=== PATIENT | female | born 1930 | race Caucasian/White ===

== ENCOUNTER 2017-11-07 08:42 | Emergency (ER) | payer MEDICAID, MEDICARE ==
--- NOTE | 2017-11-07 10:39 | RAD ---
Indication: Soft tissue swelling medially. 3 views of left ankle demonstrates osteopenia. No definite fractures identified although soft tissue swelling is noted. Inferior calcaneal spurring is noted. Inferior calcaneal spur is noted. IMPRESSION: Soft tissue swelling. No definite fracture is identified.
--- NOTE | 2017-11-07 10:47 | RAD ---
Indication: Fall, left hip pain. 2 views of left hip and an AP view the pelvis demonstrates moderate degenerative changes of the left hip with joint space narrowing. No definite fracture is identified. Pelvic ring is otherwise intact. IMPRESSION: Moderate degenerative changes of the left hip. No definite fracture is noted.
[2017-11-07 11:37] VITALS: BP 144/52
--- NOTE | 2017-11-08 09:55 | ED ---
Uli Cerrato Angela, scribed for Giovany Land MD on 11/07/17 at 0859 . Adult Trauma - HPI Summary HPI Summary: This pt is a 87 y/o female presenting to [facility] via EMS from [facility] c/o left ankle pain s/p fall yesterday. Pt notes she had a fall yesterday and had immediate left ankle pain. No LOC or head strike. She initially states that she doesn't have any pain today, but upon palpation pt notes pain. Per ED nurse, pt had an XR yesterday that has yet to be read. - History of Current Complaint Chief Complaint: EDExtremityLower Stated Complaint: FALL Time Seen by Provider: 11/07/17 08:50 Hx Obtained From: Patient Mechanism of Injury: Fall Loss of Consciousness: no loss of consciousness Onset/Duration: Started Days Ago - 1, Traumatic, Still Present Onset of Pain: Immediate Current Severity: Moderate Pain Intensity: 0 Location: Other - left ankle Aggravating Factor(s): Movement, Palpation Alleviating Factor(s): Nothing Associated Signs & Symptoms: Positive: Negative - Additional Pertinent History Primary Care Physician: [id number] - Allergy/Home Medications Allergies/Adverse Reactions: Allergies Allergy/AdvReac Type Severity Reaction Status Date / Time No Known Drug Allergy Allergy Unknown Verified 12/23/15 11:20 Reaction Details STRAWBERRIES Allergy Rash Uncoded 05/03/15 09:16 Home Medications: Home Medications Acetaminophen TAB* [Tylenol TAB*] 650 mg PO BID 11/07/17 [History Confirmed 09/14] Acetaminophen TAB* [Tylenol TAB*] 650 mg PO DAILY PRN 11/07/17 [History Confirmed 11/07/17] Apixaban* [Eliquis*] 5 mg PO BID 11/07/17 [History Confirmed 11/07/17] Bisacodyl SUPP* [Dulcolax Supp*] 10 mg MN DAILY PRN 11/07/17 [History Confirmed 11/07/17] Cholecalciferol [Vitamin D3] 50,000 unit PO MONTHLY 11/07/17 [History Confirmed 11/07/17] Cyanocobalamin TAB* [Vitamin B12 TAB*] 1,000 mcg PO DAILY 11/07/17 [History Confirmed 11/07/17] Loperamide CAP* [Imodium CAP*] 2 mg PO BID 11/07/17 [History Confirmed 11/07/17] Magnesium Hydroxide LIQ* [Milk of Magnesia LIQ*] 30 ml PO DAILY PRN 11/07/17 [ History Confirmed 11/07/17] Sodium Phosphate ADULT ENEMA* [Fleet Enema*] 1 enema MN DAILY PRN 11/07/17 [ History Confirmed 11/07/17] PMH/Surg Hx/FS Hx/Imm Hx Endocrine/Hematology History: Denies: Hx Diabetes Cardiovascular History: Reports: Hx Hypertension GI History: Reports: Other GI Disorders - DIARRHEA-" MANY MANY YEARS" Musculoskeletal History: Reports: Hx Arthritis - LEFT KNEE, HANDS, TOES, Hx Bursitis - RIGHT SHOULDER Denies: Hx Osteoporosis Sensory History: Reports: Hx Cataracts, Hx Contacts or Glasses Denies: Hx Hearing Aid Opthamlomology History: Reports: Hx Cataracts, Hx Contacts or Glasses Neurological History: Reports: Hx Dementia, Other Neuro Impairments/Disorders - HANDS SHAKE Psychiatric History: Reports: Hx Depression - spring BETTER NOW - Surgical History Surgery Procedure, Year, and Place: 1968-LEFT OVARIAN CYSTECTOMY Hx Anesthesia Reactions: No Infectious Disease History: No Infectious Disease History: Denies: Traveled Outside the [place] in Last 30 Days - Family History Known Family History: Positive: Unknown - Social History Alcohol Use: None Substance Use Type: Reports: None Smoking Status (MU): Never Smoked Tobacco Review of Systems Negative: Fever, Chills ENT: Negative Cardiovascular: Negative Respiratory: Negative Gastrointestinal: Negative Musculoskeletal: Other - left ankle pain Skin: Negative Negative: Headache All Other Systems Reviewed And Are Negative: Yes Physical Exam - Summary Physical Exam Summary: Appearance: The patient is well-nourished in no acute distress. Skin: The skin is warm and dry and skin color reflects adequate perfusion. HEENT: The head is normocephalic and atraumatic. The pupils are equal and reactive. The conjunctivae are clear and without drainage. Nares are patent and without drainage. Mouth reveals moist mucous membranes and the throat is without erythema and exudate. The external ears are intact. The ear canals are patent and without drainage. The tympanic membranes are intact. Neck: the neck is supple with full range of motion and non-tender. There are no carotid bruits. There is no neck vein distension. Respiratory: Chest is non-tender. Lungs are clear to auscultation and breath sounds are symmetrical and equal. Cardiovascular: Heart is regular rate and rhythm. There is no murmur or rub auscultated. There is no peripheral edema and pulses are symmetrical and equal. Abdomen: The abdomen is soft and non-tender. There are normal bowel sounds heard in all four quadrants and there is no organomegaly palpated. Musculoskeletal: There is no back tenderness noted. There is good capillary refill. There is no peripheral edema or calf tenderness elicited. LLE: there is tenderness to palpation to her left ankle. Tender to any movement of left leg. Left knee is nontender to palpation. Neurological: Patient is alert and oriented to person, place and time. The patient has symmetrical motor strength in all four extremities. Cranial nerves are grossly intact. Deep tendon reflexes are symmetrical and equal in all four extremities. Psychiatric: The patient has an appropriate affect and does not exhibit any anxiety or depression. Triage Information Reviewed: Yes Vital Signs On Initial Exam: Initial Vitals Temp Pulse Resp BP Pulse Ox 97.2 F 60 18 124/75 98 11/07/17 08:46 11/07/17 08:46 11/07/17 08:46 11/07/17 08:46 11/07/17 08:46 Vital Signs Reviewed: Yes Diagnostics - Vital Signs Vital Signs Temp Pulse Resp BP Pulse Ox 11/07/17 08:46 97.2 F 60 18 124/75 98 - Laboratory Lab Statement: Any lab studies that have been ordered have been reviewed, and results considered in the medical decision making process. - Radiology Left ankle XR Xray Interpretation: Positive (See Comments) - IMPRESSION: Soft tissue swelling. No definite fracture is identified. Dr. Land has reviewed this radiology report. Radiology Interpretation Completed By: Radiologist Hip/Pelvis XR Xray Interpretation: No Acute Changes - IMPRESSION: Moderate degenerative changes of the left hip. No definite fracture is noted. Dr. Land has reviewed this radiology report. Radiology Interpretation Completed By: Radiologist Adult Trauma Course/Dx - Course Course Of Treatment: Ms. Wilson fell yesterday and has some left ankle pain. She is a difficult exam secondary to dementia and i can't tell if she also has hip pain and tenderness. X-rays were negative here aside from some ankle swelling and I will let her go back with conservative treatment. - Diagnoses Provider Diagnoses: Ankle sprain Discharge - Discharge Plan Condition: Stable Disposition: HOME Patient Education Materials: Ankle Sprain (ED) Referrals: Antonio Dangelo MD [Primary Care Provider] - Additional Instructions: Please follow up with your primary care provider. RETURN TO THE ED FOR ANY WORSENING SYMPTOMS. The documentation as recorded by the Uli carr Angela accurately reflects the service I personally performed and the decisions made by , Giovany Land MD.
== END 2017-11-07 11:34 | disposition home or self-care (01) ==
LOC: ED 08:42
DX: S93.402A Sprain of unspecified ligament of left ankle, initial encounter (principal); M25.552 Pain in left hip; Z86.79 Personal history of other diseases of the circulatory system; W19.XXXA Unspecified fall, initial encounter; Y92.9 Unspecified place or not applicable
CPT/HCPCS: 99283

== ENCOUNTER 2017-11-18 12:49 | Emergency (ER) | payer MEDICAID, OTHER ==
--- NOTE | 2017-11-18 14:00 | RAD ---
HISTORY: Right shoulder pain COMPARISONS: None VIEWS: 5, Frontal internal rotation, external rotation, outlet, and axillary views of the right shoulder FINDINGS: BONE DENSITY: There is diffuse osteopenia. BONES: There is no displaced fracture. JOINTS: There is mild osteoarthritis of the a.c. and glenohumeral joints. ALIGNMENT: There is no dislocation. SOFT TISSUES: Unremarkable. OTHER FINDINGS: None. IMPRESSION: 1. OSTEOPENIA. 2. MILD OSTEOARTHRITIS. 3. NO ACUTE OSSEOUS INJURY. IF SYMPTOMS PERSIST, RECOMMEND REPEAT IMAGING.
[2017-11-18] MEDS ORDERED: HYDROcodone/ACETAMIN 5-325 MG* 1 TAB PO ONE (14:04)
[2017-11-18 14:48] VITALS: BP 130/59
--- NOTE | 2017-11-18 17:36 | ED ---
Uli Cerrato Angela, scribed for Román Edmond MD on 11/18/17 at 1316 . Upper Extremity Pain - HPI Summary HPI Summary: This pt is a 87 y/o female presenting to [facility] via EMS from [facility] c/o right shoulder pain. Pt denies any fall or trauma to her shoulder. Pt has pain with movement of her right shoulder. Upon examination, pt has immediate pain at palpation. HPI is limited due to level 5 caveat - pt has dementia. - History of Current Complaint Chief Complaint: EDExtremityUpper Stated Complaint: RT SHOULDER PAIN Time Seen by Provider: 11/18/17 13:12 Hx Obtained From: Patient Hx From Patient Unobtainable Due To: Dementia Mechanism Of Injury: Other - none, per pt Onset/Duration: Started Hours Ago, Still Present Timing: Lasting Hours Severity Currently: Severe Pain Location: Shoulder - right Aggravating Factor(s): Movement, Other - palpation Alleviating Factor(s): Rest Associated Signs & Symptoms: Positive: Negative - Allergies/Home Medications Allergies/Adverse Reactions: Allergies Allergy/AdvReac Type Severity Reaction Status Date / Time No Known Drug Allergy Allergy Unknown Verified 12/23/15 11:20 Reaction Details STRAWBERRIES Allergy Rash Uncoded 05/03/15 09:16 PMH/Surg Hx/FS Hx/Imm Hx Endocrine/Hematology History: Denies: Hx Diabetes Cardiovascular History: Reports: Hx Hypertension GI History: Reports: Other GI Disorders - DIARRHEA-" MANY MANY YEARS" Musculoskeletal History: Reports: Hx Arthritis - LEFT KNEE, HANDS, TOES, Hx Bursitis - RIGHT SHOULDER Denies: Hx Osteoporosis Sensory History: Reports: Hx Cataracts, Hx Contacts or Glasses Denies: Hx Hearing Aid Opthamlomology History: Reports: Hx Cataracts, Hx Contacts or Glasses Neurological History: Reports: Hx Dementia, Other Neuro Impairments/Disorders - HANDS SHAKE Psychiatric History: Reports: Hx Depression - SPRING TIME BETTER NOW - Surgical History Surgery Procedure, Year, and Place: 1968-LEFT OVARIAN CYSTECTOMY Hx Anesthesia Reactions: No - Immunization History Date of Influenza Vaccine: 08/2017 Immunizations Up to Date: Yes Infectious Disease History: No Infectious Disease History: Denies: Traveled Outside the [place] in Last 30 Days - Family History Known Family History: Positive: Other - Mother: [place]. Father: stroke. - Social History Alcohol Use: None Substance Use Type: Reports: None Smoking Status (MU): Never Smoked Tobacco Review of Systems - ROS Summary Review of Systems Summary: ROS is limited due to level 5 caveat - pt has dementia. Negative: Fever, Chills Musculoskeletal: Other - right shoulder pain All Other Systems Reviewed And Are Negative: No Physical Exam - Summary Physical Exam Summary: VITAL SIGNS: Reviewed. GENERAL: Patient is a well-developed and nourished female who is lying comfortable in the stretcher. Unable to get a good history, pt is demented. HEAD AND FACE: No signs of trauma. No ecchymosis, hematomas or skull depressions. No sinus tenderness. EYES: PERRLA, EOMI x 2, No injected conjunctiva, no nystagmus. EARS: Hearing grossly intact. Ear canals and tympanic membranes are within normal limits. MOUTH: Oropharynx within normal limits. NECK: Supple, trachea is midline, no adenopathy, no JVD, no carotid bruit, no c- spine tenderness, neck with full ROM. CHEST: Symmetric, no tenderness at palpation LUNGS: Clear to auscultation bilaterally. No wheezing or crackles. CVS: Regular rate and rhythm, S1 and S2 present, no murmurs or gallops appreciated. ABDOMEN: Soft, non-tender. No signs of distention. No rebound no guarding, and no masses palpated. Bowel sounds are normal. EXTREMITIES: FROM in all major joints, no edema, no cyanosis or clubbing. RUE: pt has right shoulder tenderness. No signs of deformities. There is increased pain in right shoulder with palpation. Good pulses. Good capillary refill. NEURO: Alert and oriented x 3. No acute neurological deficits. Speech is normal and follows commands. SKIN: Dry and warm Triage Information Reviewed: Yes Vital Signs On Initial Exam: Initial Vitals Temp Pulse Resp BP Pulse Ox 97.9 F 63 17 119/53 97 11/18/17 13:05 11/18/17 13:05 11/18/17 13:05 11/18/17 13:05 11/18/17 13:05 Vital Signs Reviewed: Yes Completion Of Physical Exam Limited Due To: Dementia Diagnostics - Vital Signs Vital Signs Temp Pulse Resp BP Pulse Ox 11/18/17 13:05 97.9 F 63 17 119/53 97 - Laboratory Lab Statement: Any lab studies that have been ordered have been reviewed, and results considered in the medical decision making process. - Radiology Right shoulder XR Xray Interpretation: No Acute Changes - IMPRESSION: 1. Osteopenia. 2. Mild osteoarthritis. 3. No acute osseous injury. If symptoms persist, recommend repeat imaging. Dr. Edmond has reviewed this radiology report. Radiology Interpretation Completed By: Radiologist Course/Dx - Course Course Of Treatment: This pt is a 87 y/o female presenting to [facility] via EMS from [facility] c/o right shoulder pain. Pt denies any fall or trauma to her shoulder. Pt has pain with movement of her right shoulder. Upon examination, pt has immediate pain at palpation. HPI is limited due to level 5 caveat - pt has dementia. XR of the right shoulder is negative for fracture or dislocation. Pt was given Devils Elbow for the pain and her pain improved. She is still having pain and therefore she will be given pain control. She has no other complaints. Pt ambulated with difficulty but without any other type of pain. Therefore, she will be discharged home with follow up from her PCP. - Diagnoses Provider Diagnoses: Shoulder pain Discharge - Discharge Plan Condition: Stable Disposition: HOME Patient Education Materials: Shoulder Pain (ED) Referrals: Antonio Dangelo MD [Primary Care Provider] - Additional Instructions: Please follow up with your primary care provider. RETURN TO THE ED FOR ANY WORSENING SYMPTOMS. The documentation as recorded by the Uli crar Angela accurately reflects the service I personally performed and the decisions made by Mayito tomas Walter, MD.
== END 2017-11-18 17:25 | disposition home or self-care (01) ==
LOC: ED 12:49
DX: M25.511 Pain in right shoulder (principal); M85.811 Other specified disorders of bone density and structure, right shoulder; M19.011 Primary osteoarthritis, right shoulder; I10 Essential (primary) hypertension; R19.7 Diarrhea, unspecified; F03.90 Unspecified dementia, unspecified severity, without behavioral disturbance, psychotic disturbance, mood disturbance, and anxiety; F32.9 Major depressive disorder, single episode, unspecified
CPT/HCPCS: 99281